=== PATIENT | male | born 1985 | race Caucasian/White ===

== ENCOUNTER 2021-02-16 19:45 | Emergency (ER) | payer BC ==
--- NOTE | 2021-02-16 22:01 | CR ---
INDICATION: Chest pain, cough TECHNIQUE: Chest radiograph 3 views COMPARISON: None FINDINGS: The sensitivity and specificity of the exam are moderately limited by the patient`s body habitus. Mediastinum: The mediastinum is normal in appearance. The heart silhouette is normal in size and morphology. Lung: Both lungs are unremarkable in appearance. No sign of pleural effusion seen. No pneumothorax is identified. Bone and Soft tissue: Unremarkable for age. IMPRESSION: 1. No acute cardiopulmonary disease is seen. Dictated by: Mekhi Alejandro MD @ 02/16/2021 21:59:47 (Electronically Signed)
[2021-02-16] MEDS ORDERED: Sodium Chloride 0.9% 1,000 ML IV ONE (22:38)
[2021-02-16] MEDS ORDERED: Sodium Chloride 0.9% 2.5 ML Syringe FLUSH PRN (22:38)
[2021-02-16] MEDS ORDERED: Sodium Chloride 0.9% 10 ML Syringe FLUSH PRN (22:38)
[2021-02-16] MEDS ORDERED: Ketorolac 15 MG/ML SDV IVPUSH STA (22:38)
[2021-02-16 23:42] LABS: BLOOD UREA NITROGEN,BUN 9 mg/dL (7.0-18.0); CARBON DIOXIDE,CO2 30.5 mmol/L (21.0-32.0); CHLORIDE,CL 102 mmol/L (98-107); GLUCOSE RANDOM 118 mg/dL (74-106); POTASSIUM,K 4.7 mmol/L (3.5-5.1); SODIUM,NA 139 mmol/L (136-148)
--- NOTE | 2021-02-16 23:48 | EDM.PDOC ---
ED HPI GENERAL MEDICAL PROBLEM - General Chief Complaint: General Stated Complaint: BODY ACHES, SHORTNESS OF BREATH Time Seen by Provider: 02/16/21 20:51 - History of Present Illness INITIAL COMMENTS - FREE TEXT/NARRATIVE: HISTORY AND PHYSICAL: History of present illness: This is a 35-year-old healthy gentleman with no history of hypertension, diabetes, liver, lung, kidney problems who presents ER today secondary to generalized malaise, episode of shortness of breath, tactile fevers, chills that occurred earlier this evening. Patient reports that he received his first Covid vaccine 4 days ago and has not been feeling well since. He reports that he had nausea all day yesterday and was unable to eat very much yesterday. He reports today during dinner he started feeling worse with chills, body aches and an episode of shortness of breath. Patient came to the ED for further evaluation. Patient denies any vomiting although he has been nauseous. Patient has any diarrhea or abdominal pain. Patient denies any chest pain or discomfort. Patient denies any recent cough cold or rhinorrhea. Patient reports that upon his evaluation by me that his symptoms had almost completely resolved and that he feels 100% improved without any therapeutic intervention here in the ED. Review of systems: As per history of present illness and below otherwise all systems reviewed and negative. Past medical history: As per history of present illness and as reviewed below otherwise noncontributory. Surgical history: As per history of present illness and as reviewed below otherwise noncontributory. Social history: No reported history of drug abuse. Family history: As per history of present illness and as reviewed below otherwise noncontributory. Physical exam: This patient was seen and evaluated during the 2019 SARS-CoV-2 novel coronavirus pandemic period. Community viral transmission is ongoing at time of this encounter and the emergency department is operating under pandemic response procedures. Constitutional: Patient is oriented to person, place, and time. Appears well- developed and well-nourished. No distress. HEENT: Moist mucous membranes Head: Normocephalic and atraumatic Eyes: Right eye exhibits no discharge. Left eye exhibits no discharge. No scleral icterus Neck: Normal range of motion. No tracheal deviation present. Cardiovascular: Normal rate and regular rhythm. Pulmonary: Effort normal, no respiratory distress. Abdominal: No distention Musculoskeletal: Normal range of motion Neurologic: Alert and oriented to person, place and time. Skin: [place], warm and dry. Psychiatric: Normal mood and affect. Behavior is normal. Judgment and thought content normal. Nursing note and vital signs have been reviewed Diagnostics: Chest Xray: Normal cardiac silhouette No infiltrates or effusions identified. No PTX No evidence of acute bony fracture. As interpreted by ER MD: Graham EKG date February 16, 2021 at 8:52 PM EKG: As interpreted by ER physician: Graham: Nonspecific ST-T wave abnormalities Normal axis No evidence of ST elevation NC Normal sinus rhythm heart rate of 91 CBC, CMP unremarkable except for an elevated WBC count which is most likely secondary to the recent vaccine that he received. Therapeutics: NSS x1 L, Toradol 15 mg IV Assessment and plan: This is a 35-year-old gentleman who presents ER today secondary to generalized malaise, shortness of breath, tactile fevers that resolved by the time I evaluated him. This appears likely secondary to side effects from the Covid vaccine. Patient will have a CBC, CMP, D-dimer, chest x-ray, Covid test obt ained. Patient's labs are all within normal limits except for an elevated WBC count with no left shift. I suspect that this is secondary to inflammatory reaction from the Covid vaccine itself. Patient will be given Toradol to help with his symptoms as well as IV fluids to help hydrate him. Patient's Covid test was negative here in the ED and his chest x-ray was unremarkable. As patient feels much improved I feel that he will be stable for discharge. He initially did not even want me to draw labs on him or give him IV fluids however he is agreed to stay for the lab since he [place] 40 miles away in case his symptoms should come back. Patient CTA was unremarkable except for evidence of possible bronchitis. No PE. Patient reported to me that he is currently on amoxicillin after going the walk-in clinic yesterday secondary to not feeling well. At this time, patient does not present with any signs of any acute infection that will need any further management or changes antibiotics. Reassessment at the time of disposition demonstrates that the patient is in no acute distress. The patient has remained stable throughout the entire ED visit and is without objective evidence for acute process requiring urgent intervention or hospitalization. The patient is stable for discharge, counseling is provided as documented above, discussed symptomatic treatment and specific conditions for return. I have spoken with the patient/caregiver and discussed todays findings, in addition to providing specific details for the plan of care. Questions are answered and there is agreement with the plan. Definitive disposition and diagnosis as appropriate pending reevaluation and review of above. chest Pain Score (Numeric/FACES): 2 - Related Data Allergies Allergy/AdvReac Type Severity Reaction Status Date / Time No Known Allergies Allergy Verified 02/16/21 20:51 Home Meds: Home Meds Amoxicillin [Amoxil] 1 tab PO ASDIRECTED 02/16/21 [History] Past Medical History - Past Health History Medical/Surgical History: Denies Medical/Surgical History HEENT History: Reports: None Cardiovascular History: Reports: None Respiratory History: Reports: None Gastrointestinal History: Reports: None Genitourinary History: Reports: None Musculoskeletal History: Reports: None Neurological History: Reports: None Psychiatric History: Reports: None Endocrine/Metabolic History: Reports: None Hematologic History: Reports: None Immunologic History: Reports: None Oncologic (Cancer) History: Reports: None Dermatologic History: Reports: None - Infectious Disease History Infectious Disease History: Reports: None - Past Surgical History Head Surgeries/Procedures: Reports: None HEENT Surgical History: Reports: None Cardiovascular Surgical History: Reports: None Respiratory Surgical History: Reports: None GI Surgical History: Reports: None Male Surgical History: Reports: None Endocrine Surgical History: Reports: None Neurological Surgical History: Reports: None Musculoskeletal Surgical History: Reports: None Oncologic Surgical History: Reports: None Dermatological Surgical History: Reports: None Social & Family History - Family History Family Medical History: No Pertinent Family History - Tobacco Use Tobacco Use Status *Q: Never Tobacco User - Recreational Drug Use Recreational Drug Use: No ED ROS GENERAL - Review of Systems Review Of Systems: See Below ED EXAM, GENERAL - Physical Exam Exam: See Below Course - Vital Signs Last Recorded V/S: Last Vital Signs Temp 98.5 F 02/16/21 23:52 Pulse 78 02/16/21 23:52 Resp 02/16/21 23:52 BP 116/65 02/16/21 23:52 Pulse Ox 95 02/16/21 23:52 - Orders/Labs/Meds Orders: Active Orders 24 hr Category Date Time Status Sodium Chloride 0.9% [Saline Flush] Med 02/16/21 22:38 Active 10 ml FLUSH ASDIRECTED PRN Sodium Chloride 0.9% [Saline Flush] Med 02/16/21 22:38 Active 2.5 ml FLUSH ASDIRECTED PRN Saline Lock Insert [OM.PC] Stat Oth 02/16/21 22:38 Ordered Medication Orders Sodium Chloride (Sodium Chloride 0.9% 10 Ml Syringe) 10 ml FLUSH ASDIRECTED PRN PRN Reason: Keep Vein Open Sodium Chloride (Sodium Chloride 0.9% 2.5 Ml Syringe) 2.5 ml FLUSH ASDIRECTED PRN PRN Reason: Keep Vein Open Labs: Laboratory Tests 02/16/21 02/16/21 02/16/21 Range/Units 21:10 23:05 23:05 WBC 24.08 H (4.0-11.0) K/uL RBC 4.98 (4.50-5.90) M/uL Hgb 14.4 (13.0-17.0) g/dL Hct 43.2 (38.0-50.0) % MCV 86.7 (80.0-98.0) fL MCH 28.9 (27.0-32.0) pg MCHC 33.3 (31.0-37.0) g/dL RDW Std Deviation 43.9 (28.0-62.0) fl RDW Coeff of [place] 14 (11.0-15.0) % Plt Count 278 (150-400) K/uL MPV 9.60 (7.40-12.00) fL Neut % (Auto) 79.3 (48.0-80.0) % Lymph % (Auto) 11.5 L (16.0-40.0) % [place] % (Auto) 8.7 (0.0-15.0) % Eos % (Auto) 0.4 (0.0-7.0) % Baso % (Auto) 0.1 (0.0-1.5) % Neut # (Auto) 19.1 H (1.4-5.7) K/uL Lymph # (Auto) 2.8 H (0.6-2.4) K/uL [place] # (Auto) 2.1 H (0.0-0.8) K/uL Eos # (Auto) 0.1 (0.0-0.7) K/uL Baso # (Auto) 0.0 (0.0-0.1) K/uL Nucleated RBC % 0.0 /100WBC Nucleated RBCs # 0 K/uL D-Dimer, Quantitative 1.06 H (0.0-0.50) mg/L FEU Sodium (136-148) mmol/L Potassium (3.5-5.1) mmol/L Chloride (98-107) mmol/L Carbon Dioxide (21.0-32.0) mmol/L BUN (7.0-18.0) mg/dL Creatinine (0.8-1.3) mg/dL Est Cr Clr Drug Dosing mL/min Estimated GFR (MDRD) ml/min Glucose (74-106) mg/dL Calcium (8.5-10.1) mg/dL Total Bilirubin (0.2-1.0) mg/dL AST (15-37) IU/L ALT (14-63) IU/L Alkaline Phosphatase (46-116) U/L Troponin I (0.000-0.056) ng/mL Total Protein (6.4-8.2) g/dL Albumin (3.4-5.0) g/dL Globulin (2.6-4.0) g/dL Albumin/Globulin Ratio (0.9-1.6) SARS-CoV-2 RNA (TANA) NEGATIVE (NEGATIVE) 02/16/21 Range/Units 23:05 WBC (4.0-11.0) K/uL RBC (4.50-5.90) M/uL Hgb (13.0-17.0) g/dL Hct (38.0-50.0) % MCV (80.0-98.0) fL MCH (27.0-32.0) pg MCHC (31.0-37.0) g/dL RDW Std Deviation (28.0-62.0) fl RDW Coeff of [place] (11.0-15.0) % Plt Count (150-400) K/uL MPV (7.40-12.00) fL Neut % (Auto) (48.0-80.0) % Lymph % (Auto) (16.0-40.0) % [place] % (Auto) (0.0-15.0) % Eos % (Auto) (0.0-7.0) % Baso % (Auto) (0.0-1.5) % Neut # (Auto) (1.4-5.7) K/uL Lymph # (Auto) (0.6-2.4) K/uL [place] # (Auto) (0.0-0.8) K/uL Eos # (Auto) (0.0-0.7) K/uL Baso # (Auto) (0.0-0.1) K/uL Nucleated RBC % /100WBC Nucleated RBCs # K/uL D-Dimer, Quantitative (0.0-0.50) mg/L FEU Sodium 139 (136-148) mmol/L Potassium 4.7 (3.5-5.1) mmol/L Chloride 102 (98-107) mmol/L Carbon Dioxide 30.5 (21.0-32.0) mmol/L BUN 9 (7.0-18.0) mg/dL Creatinine 1.2 (0.8-1.3) mg/dL Est Cr Clr Drug Dosing 95.20 mL/min Estimated GFR (MDRD) > 60.0 ml/min Glucose 118 H (74-106) mg/dL Calcium 8.9 (8.5-10.1) mg/dL Total Bilirubin 0.6 (0.2-1.0) mg/dL AST 19 (15-37) IU/L ALT 29 (14-63) IU/L Alkaline Phosphatase 89 (46-116) U/L Troponin I < 0.050 (0.000-0.056) ng/mL Total Protein 7.7 (6.4-8.2) g/dL Albumin 3.5 (3.4-5.0) g/dL Globulin 4.2 H (2.6-4.0) g/dL Albumin/Globulin Ratio 0.8 L (0.9-1.6) SARS-CoV-2 RNA (TANA) (NEGATIVE) Meds: Medications Generic Name Dose Route Start Last Admin Trade Name Freq PRN Reason Stop Dose Admin Sodium Chloride 10 ml 02/16/21 22:38 Sodium Chloride 0.9% 10 Ml Syringe FLUSH ASDIRECTED PRN Keep Vein Open Sodium Chloride 2.5 ml 02/16/21 22:38 Sodium Chloride 0.9% 2.5 Ml Syringe FLUSH ASDIRECTED PRN Keep Vein Open Discontinued Medications Generic Name Dose Route Start Last Admin Trade Name Hugo PRN Reason Stop Dose Admin Sodium Chloride 1,000 mls @ 999 mls/hr 02/16/21 22:38 02/16/21 23:12 Normal Saline IV 02/16/21 23:38 999 mls/hr .Bolus ONE Administration Iopamidol 100 ml 02/16/21 23:52 02/17/21 00:19 Iopamidol 755 Mg/Ml 100 Ml Bottle IVPUSH 02/16/21 23:53 100 ml ONETIME ONE Administration Ketorolac Tromethamine 15 mg 02/16/21 22:38 02/16/21 23:11 Ketorolac 15 Mg/Ml Sdv IVPUSH 02/16/21 22:39 15 mg Q6H STA Administration Departure - Departure Time of Disposition: :07 Disposition: Home, Self-Care 01 Clinical Impression: Bronchitis, Adverse effect of COVID-19 vaccine - Discharge Information Instructions: Acute Bronchitis, Adult Referrals: Thierno Martins MD [Primary Care Provider] - Forms: ED Department Discharge Additional Instructions: You were seen and evaluated in ER today secondary to shortness of breath and muscle aches. Your test in the ED have all been normal except for an elevated D-dimer. The CTA of your chest did not reveal any blood clots or any other a bnormalities however did show that you do have some inflammation around your bronchioles consistent with bronchitis. You are currently on amoxicillin for sinusitis which also is the antibiotic of choice for bronchitis as well. Please continue your antibiotic and follow-up with your doctor within the week for reevaluation. It is highly likely that the symptoms that you are experiencing are an adverse reaction/side effect to the Covid vaccine. The following information is given to patients seen in the emergency department who are being discharged to home. This information is to outline your options for follow-up care. We provide all patients seen in our emergency department with a follow-up referral. The need for follow-up, as well as the timing and circumstances, are variable depending upon the specifics of your emergency department visit. If you don't have a primary care physician on staff, we will provide you with a referral. We always advise you to contact your personal physician following an emergency department visit to inform them of the circumstance of the visit and for follow-up with them and/or the need for any referrals to a consulting specialist. The emergency department will also refer you to a specialist when appropriate. This referral assures that you have the opportunity for follow-up care with a specialist. All of these measure are taken in an effort to provide you with optimal care, which includes your follow-up. Under all circumstances we always encourage you to contact your private physician who remains a resource for coordinating your care. When calling for follow-up care, please make the office aware that this follow-up is from your recent emergency room visit. If for any reason you are refused follow-up, please contact the [facility] Emergency Department at and asked to speak to the emergency department charge nurse. [facility] [address] [place] [id number] [facility] [address] [place] [id number] Sepsis Event Note (ED) - Evaluation Sepsis Screening Result: No Definite Risk - Focused Exam Vital Signs: Vital Signs Temp Pulse Resp BP Pulse Ox 02/16/21 23:52 98.5 F 78 18 116/65 95 02/16/21 20:52 100.8 F H 94 21 H 133/79 96 - My Orders Last 24 Hours: My Active Orders 02/16/21 22:38 Sodium Chloride 0.9% [Saline Flush] 10 ml FLUSH ASDIRECTED PRN Sodium Chloride 0.9% [Saline Flush] 2.5 ml FLUSH ASDIRECTED PRN Saline Lock Insert [OM.PC] Stat - Assessment/Plan Last 24 Hours: My Active Orders 02/16/21 22:38 Sodium Chloride 0.9% [Saline Flush] 10 ml FLUSH ASDIRECTED PRN Sodium Chloride 0.9% [Saline Flush] 2.5 ml FLUSH ASDIRECTED PRN Saline Lock Insert [OM.PC] Stat
[2021-02-16] MEDS ORDERED: Iopamidol 755 Mg/ML 100 ML Bottle IVPUSH ONE (23:52)
--- NOTE | 2021-02-17 01:01 | CT ---
INDICATION: Chest pain. Shortness of breath. Elevated D-dimer. CT CHEST WITH CONTRAST TECHNIQUE: Multidetector CT imaging was performed through the chest following intravenous contrast administration using 100 mL Isovue 370. Coronal and sagittal reconstructions were generated. COMPARISON: None. FINDINGS: Lungs and airways: Mild bilateral parahilar bronchial wall thickening suggesting bronchitis. Mild bibasilar atelectatic changes. No confluent consolidation typical for pneumonia. 4 millimeter subpleural right lower lobe lung nodule on image 110 of series 502; if clinically indicated, this could be followed as per Fleischner Society guidelines. Pleura and pleural spaces: No pleural effusions or pneumothorax. Heart and mediastinum: Normal heart size. No significant pericardial effusion. A few scattered upper normal sized bilateral hilar and mediastinal lymph nodes. No pathologically enlarged mediastinal lymph nodes identified. Vascular structures: No filling defects in the pulmonary arterial tree to suggest pulmonary emboli. Normal caliber thoracic aorta. Chest wall and axillae: No mass or axillary lymphadenopathy. Osseous structures: Minor spinal degenerative changes. Upper abdomen: Unremarkable aside from a tiny nonobstructing left intrarenal stone. IMPRESSION: 1. Mild perihilar bronchial wall thickening suggesting bronchitis. 2. No pulmonary emboli identified. 3. Nonacute additional findings as detailed above. WILY PINEDO MD [employer] [facility] [employer] Dictated by Alfredo Pinedo MD @ 02/17/2021 12:55:32 AM Please note that all CT scans at this facility use dose modulation, iterative reconstruction, and/or weight-based dosing when appropriate to reduce radiation dose to as low as reasonably achievable. Dictated by: Alfredo Pinedo MD @ 02/17/2021 00:58:37 (Electronically Signed)
== END 2021-02-17 01:21 | disposition home or self-care (01) ==
LOC: MW.ED 19:45
DX: J40 Bronchitis, not specified as acute or chronic (principal); T50.B95A Adverse effect of other viral vaccines, initial encounter; Z20.822 Contact with and (suspected) exposure to COVID-19
CPT/HCPCS: 36415; 71046; 71275; 80053; 84484; 85025; 85379; 87635; 93005; 96374; 99285; J1885; J7030; Q9967; U0002